=== PATIENT | female | born 1995 | race Caucasian/White ===

== ENCOUNTER 2021-06-17 15:38 | Emergency (ER) | payer OTHER, MEDICAID, SELFPAY ==
[2021-06-17 16:48] VITALS: BP 118/76; PULSE 88; RESP 16; TEMP 36.4; O2SAT 99
--- NOTE | 2021-06-17 17:21 | ED.GENADULT ---
HPI - General Adult General Chief complaint: Unspecified Stated complaint: unspecified Time Seen by Provider: 06/17/21 17:22 Source: patient and RN notes reviewed Mode of arrival: ambulatory Limitations: no limitations History of Present Illness HPI narrative: 25-year-old female with history of autoimmune hepatitis presents with concern for exposure to Covid. Reports her sister who lives in the same house as her was diagnosed with Covid yesterday. She denies any symptoms, however reports concern because of her nonvaccinated status and chronic health condition. MD complaint: Covid exposure Related Data Home Medications Medication Instructions Recorded Confirmed aspirin 81 mg tablet,delayed 81 mg PO DAILY 12/18/19 06/17/21 release famotidine 20 mg tablet 20 mg PO DAILY 12/19/19 06/17/21 mycophenolate sodium 360 mg 720 mg PO BID 12/19/19 06/17/21 tablet,delayed release tacrolimus 1 mg capsule, 5 mg PO Q12H cap 12/19/19 06/17/21 immediate-release Allergies Allergy/AdvReac Type Severity Reaction Status Date / Time Sulfa (Sulfonamide Allergy Severe Hives Verified 06/17/21 16:54 Antibiotics) Review of Systems Review of Systems: Narrative: CONSTITUTIONAL: Denies malaise, chills, sweats, or fever. EYES: Denies visual changes, redness, or discharge. ENT: Denies rhinorrhea, congestion, sinus pain, otalgia or sore throat. CARDIOVASCULAR: Denies chest pain, palpitations, or edema. RESPIRATORY: Denies cough or dyspnea. GASTROINTESTINAL: Denies abdominal pain, nausea, vomiting SKIN: Denies rash or itching. MUSCULOSKELETAL: Denies myalgia. NEUROLOGIC: Denies headache. All systems reviewed & are unremarkable except as noted in HPI and below PMFSH Past Medical History Medical History (Updated 06/17/21 @ 17:27 by Cara Thompson NP) Anxiety Autoimmune hepatitis IBS (irritable bowel syndrome) Surgical History Surgical History (Updated 03/17/21 @ 11:05 by Israel Suarez APRN) Status post liver transplant Family History Family History Father Hypertension Mother Family history of elevated blood lipids Social History Social History (Updated 03/17/21 @ 10:42 by Ashly Valente MA) Smoking packs per day: 1 Smoking cigarettes per day: 20.0 Years smoked: 10 Smoking pack-years: 10.00 Smoking status: Former smoker Tobacco type: cigarettes Second hand tobacco smoke exposure: Yes Smoking end date: 11/26/15 Alcohol intake: current Alcohol use details: social Comments At time of signature, agree with nursing past medical, surgical, social and family history. There is no relevant family history pertinent to the presenting complaint Exam Narrative: Exam Narrative: GENERAL: Well-appearing, well-nourished, and in no acute distress. HEAD: Normocephalic, atraumatic. EYES: PERRLA, conjunctivae clear ENT: Nares clear. Mucous membranes moist. Oropharynx without erythema or lesions. Tonsils not enlarged and without exudate. NECK: Supple. CHEST: No respiratory distress. Speaks in full sentences. HEART: Regular rate and rhythm. SKIN: Warm, dry, no rash. NEURO: Alert and oriented x3. PSYCH: Normal mood and affect Course Course Emergency Course: Patient is aware of diagnosis, understands and agrees to treatment plan. Anticipatory guidance given. Patient agrees to follow-up as directed and is aware of reasons to seek care at the emergency department. Portions of this record may have been created with voice recognition software Vital Signs Vital signs: Vital Signs Temperature 97.6 F 06/17/21 16:48 Pulse Rate 88 06/17/21 16:48 Respiratory Rate 16 06/17/21 16:48 Blood Pressure 118/76 06/17/21 16:48 Pulse Oximetry 99 06/17/21 16:48 Temperature 97.6 F 06/17/21 16:48 Pulse Rate 88 06/17/21 16:48 Respiratory Rate 16 06/17/21 16:48 Blood Pressure 118/76 06/17/21 16:48 Pulse Oximetry 99
[2021-06-18 16:43] LABS: SARS-CoV-2 RNA PCR Positive
== END 2021-06-17 17:27 | disposition home or self-care (01) ==
PROVIDERS: Emergency Provider Nurse Practitioner; PCP Internal Medicine
DX: U07.1 COVID-19 (principal); Z87.891 Personal history of nicotine dependence; K75.4 Autoimmune hepatitis; Z79.82 Long term (current) use of aspirin; F41.9 Anxiety disorder, unspecified
CPT/HCPCS: 99213; C9803; G0463; U0003; U0005